=== PATIENT | male | born 1980 | race Caucasian/White ===

== ENCOUNTER → 2017-04-25 | Outpatient (CLI) | payer OTHER | LOC: BMCIMAGING 09:48 | PROVIDERS: ATTEND Emergency Medicine | DX: S52.124A Nondisplaced fracture of head of right radius, initial encounter for closed fracture (principal); M25.421 Effusion, right elbow ==

== ENCOUNTER → 2018-07-07 | Outpatient (CLI) | payer OTHER | LOC: FIMAGING 09:22 | PROVIDERS: ATTEND Family Medicine | DX: N50.89 Other specified disorders of the male genital organs (principal); N44.1 Cyst of tunica albuginea testis; N50.3 Cyst of epididymis ==